=== PATIENT | male | born 1940 | race Caucasian/White ===

== ENCOUNTER 2018-01-10 09:30 | Day surgery (SDC) | payer BC, MEDICARE ==
[2018-01-09 10:43] VITALS: BMI 23.7
[2018-01-10] MEDS ORDERED: Lactated Ringer's 500 ML IV ONE (11:40)
[2018-01-10] MEDS ORDERED: Propofol 10 mg/ml Inj (20 ML) ONE (11:46)
[2018-01-10] MEDS ORDERED: Lactated Ringer's 500 ML IV SCH (12:00)
[2018-01-10 12:29] VITALS: TEMP 97
[2018-01-10 12:30] VITALS: RESP 12
[2018-01-10 12:43] VITALS: O2SAT 100
[2018-01-10 13:04] VITALS: BP 120/83; PULSE 74
== END 2018-01-10 13:00 | disposition home or self-care (01) ==
LOC: C.ENDO 09:30
PROVIDERS: ATTEND Internal Medicine Gastroenterology
DX: K21.0 Gastro-esophageal reflux disease with esophagitis (principal); K44.9 Diaphragmatic hernia without obstruction or gangrene; K29.70 Gastritis, unspecified, without bleeding
CPT/HCPCS: 43239; 88305; 88312; 88313; 88342; J2704; J7120